=== PATIENT | male | born 1955 | race Caucasian/White ===

== ENCOUNTER → 2021-05-09 12:57 | Outpatient (CLI) | payer MEDICARE, OTHER, SELFPAY ==
[2021-05-09 13:34] LABS: COVID19 -Nasal RAPID POSITIVE (Negative)
== END ==
PROVIDERS: Referring Provider Physician Assistant; Visit Provider Physician Assistant
DX: U07.1 COVID-19 (principal)
CPT/HCPCS: 87635

== ENCOUNTER → 2021-10-19 07:13 | Outpatient (CLI) | payer MEDICARE, OTHER, SELFPAY ==
[2021-10-19 09:01] LABS: Alanine Aminotransferase 18 IU/L (<50); Albumin 4.1 g/dL (3.5-5.0); Albumin Globulin Ratio 1.4 (1.0-2.8); Alkaline Phosphatase 51 U/L (38-126); Aspartate Aminotransferase 24 IU/L (17-59); BUN Creatinine Ratio 17.5 (6-22); Bilirubin Total 0.4 mg/dL (0.2-1.3); Blood Urea Nitrogen 17 mg/dL (9-20); Calcium 9.2 mg/dL (8.4-10.2); Carbon Dioxide 28 mmol/L (22-32); Chloride 105 mmol/L (98-107); Cholesterol 199 mg/dL (140-199); Estimated Glomerular Filt Rate > 60.0 mL/min (>60); Globulin 2.9 g/dL (1.7-4.1); Glucose 109 mg/dL (80-110); HDL Cholesterol 53 mg/dL (40-60); HEMOLYSIS < 15 (0-50); LDL Cholesterol Calculated 113 mg/dL (<100); Potassium 4.5 mmol/L (3.4-5.1); Sodium 140 mmol/L (137-145); Triglycerides 167 mg/dL (35-150)
[2021-10-19 09:26] LABS: Prostate Specific Antigen Scrn 2.53 ng/mL (0.1-4.0)
== END ==
PROVIDERS: PCP Internal Medicine; Referring Provider Internal Medicine; Visit Provider Internal Medicine
DX: E78.2 Mixed hyperlipidemia (principal); Z12.5 Encounter for screening for malignant neoplasm of prostate
CPT/HCPCS: 36415; 80053; 80061; G0103

== ENCOUNTER → 2022-10-24 08:04 | Outpatient (CLI) | payer MEDICARE, OTHER, SELFPAY ==
[2022-10-24 08:39] LABS: Alanine Aminotransferase 24 IU/L (<50); Albumin 4.4 g/dL (3.5-5.0); Albumin Globulin Ratio 1.5 (1.0-2.8); Alkaline Phosphatase 58 U/L (38-126); Aspartate Aminotransferase 25 IU/L (17-59); BUN Creatinine Ratio 18.6 (6-22); Bilirubin Total 0.7 mg/dL (0.2-1.3); Blood Urea Nitrogen 18 mg/dL (9-20); Calcium 9.2 mg/dL (8.4-10.2); Carbon Dioxide 29 mmol/L (22-32); Chloride 100 mmol/L (98-107); Cholesterol 215 mg/dL (140-199); Estimated Glomerular Filt Rate > 60 mL/min (>60); Glucose 108 mg/dL (80-110); HDL Cholesterol 48 mg/dL (40-60); HEMOLYSIS < 15 (0-50); LDL Cholesterol Calculated 117 mg/dL (<100); Potassium 4.4 mmol/L (3.4-5.1); Sodium 140 mmol/L (137-145); Total Protein 7.4 g/dL (6.3-8.2); Triglycerides 250 mg/dL (35-150)
[2022-10-24 09:07] LABS: Prostate Specific Antigen Scrn 2.24 ng/mL (0.1-4.0)
== END ==
PROVIDERS: PCP Internal Medicine; Referring Provider Internal Medicine; Visit Provider Internal Medicine
DX: E78.2 Mixed hyperlipidemia (principal); Z12.5 Encounter for screening for malignant neoplasm of prostate
CPT/HCPCS: 36415; 80053; 80061; G0103

== ENCOUNTER → 2024-06-09 15:03 | Outpatient (CLI) | payer MEDICARE, OTHER, SELFPAY ==
--- NOTE | 2024-06-09 15:04 | DI.RAD.S_ITS ---
PROCEDURE: XR HIP W PEL IF DONE LT 2V INDICATIONS: l hip pain TECHNIQUE: AP pelvis with lateral view of the left hip. COMPARISON: None. FINDINGS: Bones: No acute fractures or dislocations. Pelvic ring appears intact. No suspicious bony lesions. Moderate to severe joint space narrowing in the left hip with subchondral sclerosis and marginal osteophyte formation as well as small subchondral cyst. Moderate degenerative changes in the right hip. Degenerative changes also seen in the included spine. Soft tissues: The visualized bowel gas pattern is normal. No suspicious soft tissue calcifications. IMPRESSION: Moderate to severe left hip osteoarthrosis. Moderate degenerative changes in the right hip. Approved by: Guru Xavier M.D. on 06/09/2024 at 21:02
== END ==
LOC: LAB 15:04 → RAD 15:04
PROVIDERS: PCP Internal Medicine; Referring Provider Internal Medicine; Visit Provider Internal Medicine
DX: M25.552 Pain in left hip (principal); G89.29 Other chronic pain; M16.12 Unilateral primary osteoarthritis, left hip
CPT/HCPCS: 73502

== ENCOUNTER → 2024-07-08 09:01 | Outpatient (CLI) | payer MEDICARE, OTHER, SELFPAY ==
[2024-07-08 10:15] LABS: Alanine Aminotransferase 15 IU/L (<50); Albumin 4.2 g/dL (3.5-5.0); Albumin Globulin Ratio 1.6 (1.0-2.8); Alkaline Phosphatase 60 U/L (38-126); Aspartate Aminotransferase 23 IU/L (17-59); BUN Creatinine Ratio 20.6 (6-22); Bilirubin Total 0.8 mg/dL (0.2-1.3); Blood Urea Nitrogen 21 mg/dL (9-20); Calcium 9.4 mg/dL (8.4-10.2); Carbon Dioxide 28 mmol/L (22-32); Chloride 106 mmol/L (98-107); Cholesterol 249 mg/dL (140-199); Estimated Glomerular Filt Rate > 60 mL/min (>60); Globulin 2.6 g/dL (1.7-4.1); Glucose 105 mg/dL (80-110); HDL Cholesterol 53 mg/dL (40-60); HEMOLYSIS < 15 (0-50); LDL Cholesterol Calculated 166 mg/dL (<100); Potassium 4.5 mmol/L (3.4-5.1); Sodium 139 mmol/L (137-145); Total Protein 6.8 g/dL (6.3-8.2); Triglycerides 151 mg/dL (35-150)
[2024-07-08 10:46] LABS: Prostate Specific Antigen Scrn 3.25 ng/mL (0.1-4.0)
== END ==
PROVIDERS: PCP Internal Medicine; Referring Provider Internal Medicine; Visit Provider Internal Medicine
DX: Z00.00 Encounter for general adult medical examination without abnormal findings (principal); E78.5 Hyperlipidemia, unspecified; Z12.5 Encounter for screening for malignant neoplasm of prostate; E78.2 Mixed hyperlipidemia; R79.89 Other specified abnormal findings of blood chemistry
CPT/HCPCS: 36415; 80053; 80061; G0103

== ENCOUNTER 2025-05-25 06:09 | Day surgery (SDC) | payer MEDICARE, OTHER, SELFPAY ==
[2025-05-11 09:25] VITALS: BMI 28.5
[2025-05-25] VITALS (10 sets, daily range): BP systolic 113–144; BP diastolic 61–87; PULSE 60–85; RESP 16–24; TEMP 36.2; O2SAT 90–97; BMI 28.5
--- NOTE | 2025-05-25 | DI.RAD.S_ITS ---
PROCEDURE: XR HIP W PEL IF DONE LT 2V INDICATIONS: INTRA OP TOTAL LEFT HIP TECHNIQUE: 2 view(s) of the hip acquired. COMPARISON: [facility], JENNIFER, XR HIP W PEL IF DONE LT 2V, 06/09/2024, 15:09. FINDINGS: Bones: Patient is status post left hip arthroplasty, with hardware components in expected positions. The hip joint appears congruent. The visualized bony structures appear intact. Soft tissues: No suspicious soft tissue densities. IMPRESSION: Expected post-operative appearance of a hip arthroplasty. Dictated by: Panfilo Tee M.D. on 05/26/2025 at 4:27 Approved by: Panfilo Tee M.D. on 05/26/2025 at 4:27
--- NOTE | 2025-05-25 06:49 | DI.RAD.S_ITS ---
PROCEDURE: XR HIP W PEL IF DONE LT 2V INDICATIONS: SANTHOSH TECHNIQUE: 2 view(s) of the hip acquired. COMPARISON: [facility], CR, XR HIP W PEL LT 2V, 05/25/2025, 9:36. [facility], CR, XR HIP W PEL IF DONE LT 2V, 06/09/2024, 15:09. FINDINGS: Bones: Patient is status post left total hip arthroplasty, with hardware components in expected positions. The hip joint appears congruent. The visualized bony structures appear intact. Soft tissues: Overlying postoperative changes are noted. No suspicious soft tissue densities. IMPRESSION: Expected post-operative appearance of a left total hip arthroplasty. Dictated by: Neo Kirby M.D. on 05/25/2025 at 13:00 Approved by: Neo Kirby M.D. on 05/25/2025 at 13:00
[2025-05-25] MEDS: ACETAMINOPHEN 325 MG TABLET 975 MG PO (07:08)
[2025-05-25] MEDS: VANCOMYCIN 1,000 MG/200 ML PIGGYBACK 200 MG IV (07:08)
[2025-05-25] MEDS: CELECOXIB 200 MG CAPSULE PO (07:08)
[2025-05-25] MEDS: LACTATED RINGERS 1,000 ML 84 ML IV ×3 (07:14→11:20)
--- NOTE | 2025-05-25 07:44 | PM.PREOP ---
Pre-operative Note Interval Note History & Physical reviewed/Exam performed by Physician: Yes Changes to H&P: No
--- NOTE | 2025-05-25 07:45 | P.OP_ITS ---
Operative Date/Time/Diagnoses Date of procedure: 05/25/25 Time of procedure: 08:00 Pre-op diagnosis: Severe left hip OA Post-op diagnosis: same Procedure & Clinicians Procedure: Left total hip arthroplasty anterior approach Same procedure(s) as scheduled: Yes Indications: The patient has had progressively worsening left hip pain with radiographic changes consistent with arthritis. Non-operative management has failed and the patient has requested total hip replacement. The risks, benefits and alternatives to surgery were discussed with the patient prior to proceeding. Risks discussed included, but were not limited to, failure to relieve pain, leg length discrepancy, dislocation, stiffness, infection, nerve damage, deep venous thrombosis, pulmonary embolism, stroke, coma, heart attack, permanent paralysis and , as well as the potential need for eventual revision of the prosthetic. Surgeon: Lorin Garcia Bacteriologist Pharmaceutical: Domingo Thompson Anesthesia Type: General and Spinal Operative Notes Findings: Severe left hip OA, adequate bone, adequate stability Closure Type: primary Specimen(s): none sent Prosthetic devices, grafts, tissues, transplants, or devices: Garcia and nephew R3 size 62, neutral poly liner, one 6.5 mm screw, polar stem lateralized size 3, 40 x +4 cobalt chrome head Applied: none Estimated Blood Loss (mL): 250 Blood products transfused: none Procedure in detail: The patient was brought to the operating room. Patient was carefully positioned in the supine position. Time-out was performed and antibiotics were given. Anesthesia was induced. He was positioned in the on the table in order to allow hyperextension of the hip. The left lower extremity was prepped and draped in a standard sterile fashion. An anterior left hip incision was made 1 fingerbreadth lateral to the anterior superior iliac spine and extended distally towards the greater trochanter. Dissection was carried out through skin and subcutaneous tissues. Superficial hemostasis was achieved. The fascia over the tensor fascia daphne was defined and incised with a knife. Two Allis clamps were used to grasp the fascia. Tensor fascia daphne was retracted laterally. A gelpi retractor was placed. Dissection was carried out down along the neck. The circumflex vessels were carefully identified and cauterized with the Aqua Mantis. He was very muscular. A PA was used during the procedure was essential for intraoperative retraction and safe implantation of the components. There was good visualization of the femoral neck. A Cobra was placed superior to the neck and the gluteus fibers were carefully stripped from that superior aspect of the capsule. A 2nd retractor was placed along the inferior aspect of the neck. The rectus insertion along the capsule was partially released. A 3rd retractor that was then gently placed over the rim of the acetabulum under the rectus. Capsule was carefully incised and released from the intertrochanteric line circumferentially superior to the mid sagittal line and inferiorly to the mid sagittal line until the lesser trochanter was palpable. A tag stitch was placed both in the superior and inferior limb of the capsular insertion. Along the acetabulum capsule was also released up to the mid sagittal 12:00 position. A portion of the labrum was resected. A saw was used to perform an osteotomy at the level of the intertrochanteric line and the junction of the superior femoral neck leaving approximately 1 finger breath of residual inferior neck above the lesser trochanter. A 2nd cut was made along the femoral neck at the base of the head and a napkin ring of neck was removed. Corkscrew was placed in the femoral head and the head was removed without difficulty. Retractors were then repositioned around the acetabulum. Residual labrum was resected and additional osteophytes were removed. A reamer that was 4 mm below the templated size was placed by hand in the acetabulum and it was reamed to centralize the acetabulum. It was then reamed up to 2 under the templated size and fluoroscopy was brought in to confirm the position of the reaming and depth of reaming. I reamed 1 under the anticipated size. A trial cup was placed and noted that it was appropriately sized and fluoroscopy confirmed position and depth. The component was open and inserted without difficulty fluoroscopic imaging was used to confirm that the cup had been adequately seated and was well positioned. Neutral poly liner was placed. It was further stabilized with a single screw. The cup was tested and noted to be stable. Attention was then directed to the femur. The femur was gently hyperextended additional capsular release was performed as needed in order to allow adequate visualization of the proximal femur with elevation of the femur. Patient was placed in a hyperextended slightly adducted position with maximum external rotation. Box osteotome was used to check for any residual neck as well as sclerotic bone along the trochanter. [place] pepper was placed in the femur. Additional broaching was performed. Canal finder was used to determine the alignment of the canal and position. Size 1 broach was placed. The canal was then appropriately broached up to the templated size as long as there was adequate stability of the broach and serial advancement of the broach without excessive impingement. Specific attention was directed at avoiding varus attempting to direct the distal aspect of the broach more anteriorly and avoiding excessive anteversion. Trial reduction showed acceptable range of motion, good stability, no posterior impingement, evangelical of leg length and appropriate lateral shuck. I also hyperflexed the hip and checked that there was no impingement anteriorly and there was good stability with flexion, a dduction and internal rotation. His leg length and offset looked best with a +4 femoral. His offset appeared restored with a lateralized stem. Marcaine and Exparel were injected. The stem was placed without difficulty. Repeat trial reduction and x-ray showed acceptable overall position, length, and no evidence of the femoral fracture. Final head was placed. Wound was meticulously irrigated with normal saline. The hip was reduced and additional Exparel and Marcaine were injected. The capsule was closed with interrupted nonabsorbable sutures. The fascia of the tensor was closed with interrupted and running Vicryl. No drain was placed. Any tensor fascia daphne muscle that appeared to be contused or injured which was a minimal amount was carefully resected. Capsule around the tensor was injected with Exparel and Marcaine. The skin was closed with barbed stitches for the subcutaneous tissue and skin. We also used surgical glue. The wound was dressed sterilely. Brief Betadine soak was also used and was meticulously irrigated with normal saline. Patient was transferred to recovery room in satisfactory condition. Complications: none Post-operative Condition: stable Disposition: Acute Care Plan for aftercare: The patient will be maintained on a standard total hip replacement protocol with weight bearing as tolerated and anterior hip precautions. The patient will receive Aspirin and sequential compression devices for DVT prophylaxis. The patient will be discharged home when safe for the home environment.
[2025-05-25] MEDS: TRANEXAMIC ACID 1,000 MG VIAL 2000 MG IV ×2 (08:25→10:36)
--- NOTE | 2025-05-25 08:36 | SUR.OPER ---
Patient supine on padded Parsons table, one arm on padded arm board at <90, other arm padded and secured with tape across patient's chest, both legs secured in padded traction boots and positioned per surgeon, padded post at patient's groin, pressure points checked and padded. Surgeon in room to assist with patient positioning, all pressure points padded and protected. Final position approved by surgeon.
[2025-05-25] MEDS: BUPivacaine 0.25% W/ EPI (PF) 30 ML VIAL 60 ML INJ (08:44)
--- NOTE | 2025-05-25 12:01 | SUR.PHASEII ---
Received pt from phase 1; denies pain, declines food at this time. Can wiggle toes, lift legs, still unable to clench gluteal muscles. Will await spinal to wear off, will need PT consult as well prior to d/c
[2025-05-25] MEDS: BENZOCAINE/MENTHOL 1 LOZ PKT 1 EACH PO (12:42)
--- NOTE | 2025-05-25 12:50 | SUR.PHASEII ---
1250: Pt has sensation to toes; assisted pt to stand at bedside with walker. Pt c/o slight lightheadedness; BP 129/79, pt's at bedside assisting him to get dressed. Left message on PT VM x 2; awaiting PT
[2025-05-25] MEDS: ONDANSETRON 4 MG/2 ML INJ IV (13:15)
--- NOTE | 2025-05-25 13:30 | PT.IIE ---
Current Diagnoses Unilateral primary osteoarthritis, left hip (05/25/25) Surgery Performed Operation Date: 05/25/25 07:45 Actual Procedures p Total Hip Arthroplasty/Anterior Approach(Left) - Lorin Garcia MD Surgical History (Last Updated 05/11/25 @ 10:04 by Cherrie Ortiz, RN) Anesthesia History of elbow surgery (~2004) Hx of toe surgery (~2011) Medical History (Last Updated 05/11/25 @ 10:05 by Cherrie Ortiz RN) COVID-19 (2020) Foot pain (~2014) Fractures Low testosterone (~2014) Measles (~1964) Mixed hyperlipidemia Wears glasses Physical Therapy Inpatient Evaluation/Re-Eval M1 PT/OT-IP Prior Functional Status Start: 05/25/25 13:58 Freq: NEEDED Status: Discharge Protocol: Document 05/25/25 13:30 AB (Rec: 05/25/25 17:06 [id number]) Medical Review Prior Functional Status Medical History Yes Reviewed Communication able to make needs known Mobility and Gait pt stated that he was independent with all mobilities and ambulation without AD Social History Household Members spouse Living Arrangements House Number of Floors ( Two Floors Floors) Number of Stairs To 2 steps to enter without rails Enter/Railing? 16 steps L rail ascending to bedroom level Home Environment High Toilet,Walk in Shower Home Equipment Front Wheel Walker,Straight Cane,Shower Seat without Backrest,Hand Held Shower Additional Social pt has an adjustable bed History Comment M2 PT-IP Current Condition Start: 05/25/25 13:58 Freq: NEEDED Status: Discharge Protocol: Document 05/25/25 13:30 AB (Rec: 05/25/25 17:06 [id number]) Physical Therapy Current Condition Current Condition Evaluation Date 05/25/25 Treatment Diagnosis s/p L SANTHOSH anterior; difficulty in walking Onset Date 05/25/25 M3 PT-IP Subjective Start: 05/25/25 13:58 Freq: NEEDED Status: Discharge Protocol: Document 05/25/25 13:30 AB (Rec: 05/25/25 17:06 [id number]) Subjective Physical Therapy Visit Type Type Initial Evaluation Visit Start Time 13:30 Visit Stop Time 14:20 Number of TEST ENGINE EVALUATOR Visits 0 Physical Therapy Visit Comments Patient Comments agreeable to do PT Therapy Pain Assessment Pain When Pain Assessed At Rest Pain Present Pain Present Pain Reported Location Left Hip Intensity 4 Scale Used Numeric (0 - 10) Pain Behaviors Guarding Pain Management Distraction,Modification of Treatment,Re-positioning, Techniques Timing of Activity with Medications M4 PT-IP Mobility and Gait Start: 05/25/25 13:58 Freq: NEEDED Status: Discharge Protocol: Document 05/25/25 13:30 AB (Rec: 05/25/25 17:06 AB [id number]) PT-Bed Mobility Assessment Supine to Sit Supine to Sit Standby Assistance Sit to Supine Sit to Supine Standby Assistance PT-Transfer Assessment Sit to and From Stand Sit to and from Contact Guard Assistance,1 Person Assistance,Use of Stand Upper Extremities Equipment Transfer Assistive Gait Belt,Front Wheeled Walker Device Orthotic/Prosthetic No Devices or Brace: Comments Mobility Comments pt in seen in PACU supine in bed. spouse with pt. obtain PLOF and home set up. educated on anterior hip precautions. post-op folder provided. pt completed supine to sit SBA and cues for techniques. pt used UE to assist with LLE mobility in bed. able to sit on EOB SBA. no c/o dizziness. educated spouse on how to use safety belt and how to assist pt. spouse was able to put safety belt on pt. pt completed sit to stand from EOB CGA and ambulated using FWW ~ 30 ft CGA and cues for L quads activation. pt sat on EOB. ambulated again with spouse assisting. stair climbing training. educated pt and spouse on how to complete steps using SPC + SAFETY INVESTIGATOR and also how to complete steps using L rail ascending. pt completed up/down step stool using side of FWW as rails CGA and cues. completed x 2 sets. spouse was able to assist pt. pt completed penitentiary/down step stool using SPC + SAFETY INVESTIGATOR mod A and cues x 2 sets and spouse also was able to assist pt . pt sat back on EOB. pt and spouse without other concerns. educated on car transfers. Left pt with nurse . Gait Assessment Gait Gait Assistance Contact Guard Assist Required: Distance (Feet) 30 Able to Maintain Yes Weight Bearing Status During Gait Assistive Devices Assistive Device Gait Belt,Front Wheeled Walker Orthotic/Prosthetic No Devices or Brace: Gait Deviations General Gait Pattern Decreased Stride Length,Decreased Feet Clearance Factors Limiting Gait Function Factors Limiting Decreased Activity Tolerance,Decreased Strength, Gait Function Difficulty Following Directions,Limited Range of Motion ,Pain,Poor Balance,Poor Safety Awareness Stair Climbing Assessment Evaluation Level of Assist On Contact Guard Assistance,Moderate Assistance,1 Person Stairs Assistance Devices Stair Climbing Straight Cane,Left Railing Assistive Devices Technique/Endurance Stair Climbing Ascend and Descend Direction Stair Climbing Step to Step Technique Number of Steps 1 Climbed Query Text: Stair Climbing Set # 4 Repetitions (reps) Comments Stair Climbing pls refer to mobility section for details Comments PT-Balance Assessment Sitting Balance and Reactions Static Sitting Normal Balance Ability Dynamic Sitting Normal Balance Ability Standing Balance and Reactions Static Standing Good Balance Ability Dynamic Standing Fair Balance Ability Device Used FWW M5 PT-IP Objective Assessments Start: 05/25/25 13:58 Freq: NEEDED Status: Discharge Protocol: Document 05/25/25 13:30 AB (Rec: 05/25/25 17:06 [id number]) Orientation Orientation/Cognition Level of Alertness Alert Orientation Name,Place,Situation Language Function No Deficits Noted Ability Safety Awareness Decreased Safety Awareness Memory Description No Deficits Noted Gross Range of Motion Lower Extremity ROM Assessment Within Functional Limits Strength Lower Extremity Strength Hip 3+/5 Knee 4-/5 Coordination Assessment Gross Coordination Gross Coordination WNL Sensation Assessment Comments Sensation Comments numbness on buttocks per pt Muscle Tone Muscle Tone WNL Yes M6 PT-IP Treatment Start: 05/25/25 13:58 Freq: NEEDED Status: Discharge Protocol: Document 05/25/25 13:30 AB (Rec: 05/25/25 17:06 [id number]) Physical Therapy Treatment Education Education Provided Precautions,Weight Bearing Status,Post-Op Packet,Safety M7 PT-IP Assessment and Plan Start: 05/25/25 13:58 Freq: NEEDED Status: Discharge Protocol: Document 05/25/25 13:30 AB (Rec: 05/25/25 17:06 [id number]) PT Summary Assessment and Plan Potential Rehabilitation Fair Potential Status of Condition Evolving at Evaluation Summary Impairments Pain,ROM,Strength,Balance,Coordination,Sensation,Tone, Cognition,Bed Mobility,Transfers,Gait,Activity Tolerance Assessment Summary pt is a 69 y/o M s/p L SANTHOSH anterior approach POD 0. pt with L hip anterior precautions and is WBAT. pt requiring SBA with bed mobility, CGA with transfers and ambulation using FWW and CGA to mod A for stair climbing. caregiver training conducted and spouse was able to assist pt with mobilities. pt has outpt PT set up. pt plans to go home with assist. Goals Bed Mobility Goal Independent Transfer Goal Independent,Front Wheeled Walker Gait Goal Independent,Front Wheel Walker Gait Distance 200 Other Goals up/down 2 steps using SPC CGA up/down 16 steps L rail ascending SBA Days to Meet Goals 3 Frequency of Treatment Frequency Of Twice a Day Treatment Treatment Plan Physical Therapy Bed Mobility Training,Transfer Training,Gait Training, Treatment Plan Therapeutic Exercise,Balance Retraining,Post Op Education,Discharge Planning,Hot or Cold Pack, Neuromuscular Re-ed,Coordination Retraining,Manual Therapy Precautions Anterior Hip No Hip Extension,No Hip External Rotation Precautions Weight Bearing Status Weight Bearing Weight Bear as Tolerated Status Allowed Weight LLE WBAT Bearing Amount ( enter % or #) (%) Recommendations To Nursing Amount of Assist 1 Person Assist Needed Discharge Recommendations PT Discharge Home with Assistance,Outpatient PT Recommendations Transportation Needs Private Vehicle at Discharge - PT assist 1
--- NOTE | 2025-05-25 13:43 | SUR.PHASEII ---
Patient reported nausea improved. Crackers, water provided. Patient has tolerated both without difficulty. Patient reported left hip pain increasing. Medicated with oxycodone.
--- NOTE | 2025-05-25 14:08 | OT.IPNOTE ---
Just received OT eval order in the past 1/2 hour and called Post-op to check on the pt. Per nursing pt seeing PT. Asked nursing to check with pt for OT needs, per nursing pt states not wanting to do OT eval and just will go home after the PT eval. Therefore discharge OT eval orders.
--- NOTE | 2025-05-25 15:16 | SUR.PHASEII ---
1500: pt still unable to void; texted Dr Garcia, orders to encourage void, but if unsuccessful, straight cath x 1 and allow pt to d/c home, reinforce that if pt goes home and does not void within 8 hours he will need to return to ED for another straight cath. Notified pt and his and they are agreeable with this plan of care.
--- NOTE | 2025-05-25 16:02 | SUR.PHASEII ---
Pt d/c'd to home with , reinforced need to return to ED if unable to void within 8 hours, they both verbalized understanding.
== END 2025-05-25 15:50 | disposition home or self-care (01) ==
PROVIDERS: PCP Internal Medicine; Referring Provider Orthopaedic Surgery; Visit Provider Orthopaedic Surgery
PROC: (CPT 27130; principal; 2025-05-25 07:45)
DX: M16.12 Unilateral primary osteoarthritis, left hip (principal); M25.752 Osteophyte, left hip
CPT/HCPCS: 27130; 73502; 76000; 97161; 97530; C1776; C1713; J0666; J0690; J1100; J1171; J2405; J2704; J3010